=== PATIENT | female | born 1950 | race Caucasian/White ===

== ENCOUNTER 2016-11-01 13:22 | Emergency (ER) | payer MEDICARE ==
[~2016-11-01] VITALS: Ht 167.6 cm; Wt 90.7 kg
[2016-11-01 13:27] VITALS: BP 151/68
[2016-11-01] MEDS ORDERED: NAPROXEN 250 MG TABLET PO STA (14:10)
--- NOTE | 2016-11-01 14:13 | PHYS DOC ---
Past Medical History Past Medical History: GERD, Hypertension, Other Additional Past Medical Histor: breast cancer with metastasis Past Surgical History: Appendectomy, Cholecystectomy, Hysterectomy, Tonsillectomy, Other (Bilateral mastectomy) Alcohol Use: None Drug Use: None Adult General Chief Complaint Chief Complaint: BACK INJURY HPI HPI Patient is a 66 year old female who presents with right low back pain that intermittently radiates down the right leg with bending or twisting that has gradually worsened over the past 6 days. States pain started gradually after some yard work 6 days ago. Pain was worse yesterday when trying to get out of a chair. She has been taking Tylenol, using heat and ice, and attempting to lay and comfortable positions. She states this feels similar to sciatica pain she has had in the past. She called her doctor, who gave her prescription for naproxen to fill today. She denies numbness, tingling, weakness, saddle anesthesia, bowel or bladder dysfunction, abdominal pain, nausea or vomiting, fever or chills, trauma. Review of Systems Review of Systems Constitutional: Denies fever or chills [] Eyes: Denies change in visual acuity, redness, or eye pain [] HENT: Denies nasal congestion or sore throat [] Respiratory: Denies cough or shortness of breath [] Cardiovascular: No additional information not addressed in HPI [] GI: Denies abdominal pain, nausea, vomiting, bloody stools or diarrhea [] : Denies dysuria or hematuria [] Musculoskeletal: Denies joint pain [] Integument: Denies rash or skin lesions [] Neurologic: Denies headache, focal weakness or sensory changes [] Endocrine: Denies polyuria or polydipsia [] Current Medications Current Medications Current Medications Medications (Trade) Dose Ordered Sig/[facility] Start Time Stop Time Status Last Admin Dose Admin Naproxen (Naprosyn) 250 mg 1X STAT 11/01/16 14:10 11/01/16 14:12 DC Allergies Allergies Allergies Coded Allergies Type Severity Reaction Last Updated Verified codeine Adverse Reaction Unknown n/v 11/01/16 Yes Physical Exam Physical Exam Constitutional: Well developed, well nourished, no acute distress, non-toxic appearance. [] HENT: Normocephalic, atraumatic, bilateral external ears normal, oropharynx moist, nose normal. [] Eyes: PERRLA, EOMI. [] Neck: Normal range of motion, supple. [] Cardiovascular:Heart rate regular rhythm [] Lungs & Thorax: Bilateral breath sounds clear to auscultation [] Abdomen: Bowel sounds normal, soft, no tenderness, no pulsatile masses. [] Skin: Warm, dry, no erythema, no rash. [] Back: No midline spinal tenderness, no CVA tenderness. Tenderness to right lower paraspinal lumbar muscles with no visual or palpable abnormality [] Extremities: No tenderness, ROM intact, no edema equal DP pulses. Straight leg raise positive on the right. [] Neurologic: Alert and oriented X 3, normal motor function, normal sensory function, no focal deficits noted. [] Psychologic: Affect normal, judgement normal, mood normal. [] Current Patient Data Vital Signs Vital Signs Date Time Temp Pulse Resp B/P Pulse Ox O2 Delivery O2 Flow Rate FiO2 11/01/16 13:27 97.5 80 16 151/68 98 Room Air 97.5 Course & Med Decision Making Course & Med Decision Making Pertinent Labs and Imaging studies reviewed. (See chart for details) Discussed symptomatic management for likely musculoskeletal versus radicular back pain. Return precautions given. She understands and agrees with plan. Dragon Disclaimer Dragon Disclaimer This electronic medical record was generated, in whole or in part, using a voice recognition dictation system. Departure Departure Impression: Primary Impression: Back pain Disposition: 01 HOME, SELF-CARE Condition: STABLE Referrals: ANDER CORRIGAN (PCP) Patient Instructions: Back Pain, Adult, [id number] Additional Instructions: Follow-up with your primary care doctor. Return for any concerns. Problem Qualifiers Primary Impression: Back pain Back pain location: low back pain Chronicity: acute Back pain laterality: right Sciatica presence: with sciatica Sciatica laterality: sciatica of right side Qualified Code: M54.41 - Lumbago with sciatica, right side Checo CARLTON MD Nov 01, 2016 14:13
== END 2016-11-01 14:28 | disposition home or self-care (01) ==
LOC: ER 13:22
DX: M54.5 Low back pain (principal); M79.604 Pain in right leg; I10 Essential (primary) hypertension; K21.9 Gastro-esophageal reflux disease without esophagitis; Z90.49 Acquired absence of other specified parts of digestive tract; Z90.710 Acquired absence of both cervix and uterus; Z88.5 Allergy status to narcotic agent
CPT/HCPCS: 99284